=== PATIENT | female | born 1995 | race Native Hawaiian/Other Pacific Islander ===

== ENCOUNTER 2016-05-25 23:48 | Emergency (ER) | payer MEDICAID, OTHER ==
[2016-05-25] MEDS ORDERED: XOPENEX IH ONE (23:59)
[2016-05-25] MEDS ORDERED: ATROVENT IH ONE (23:59)
[2016-05-26] MEDS ORDERED: DUONEB 0.5 MG-3 MG/3 ML SOLN IH ONE (00:40)
--- NOTE | 2016-05-26 04:00 | Emergency Department Report ---
HPI - General Chief Complaint: Adult Asthma Time Seen by Provider: 05/26/16 00:38 - HPI HPI: The patient is a 20-year-old female with a history of asthma, who presents for evaluation of dyspnea. The patient reports progressive dyspnea for the past one week, severe for the past one day, constant for the past one day, exacerbated with physical activity, and improved at rest. The patient denies fever, cough, chest pain, syncope, hemoptysis, unilateral leg swelling, oral contraceptive use, recent immobilization, history of DVT or PE, hx cancer. She states that his symptoms are consistent with her previous asthma exacerbations. ED Past Medical Hx - Past Medical History Previous Medical History?: Yes Hx Asthma: Yes - Surgical History Past Surgical History?: No - Social History Smoking Status: Never Smoker Substance Use Type: None - Medications Home Medications: Home Medications Medication Instructions Recorded Confirmed Last Taken Type HYDROcodone/APAP 5-325 [Gwynn 1 each PO Q8HR PRN #6 tablet 06/21/13 Unknown Rx 5-325 mg TAB] ALBUTEROL Inhaler [ProAir HFA 2 puff IH QID PRN #1 inhalation 05/26/16 Unknown Rx Inhaler] Prednisone [predniSONE 10 mg 10 mg PO .TAPER #1 tab.ds.pk 05/26/16 Unknown Rx (6-Day Pack, 21 Tabs)] ED Review of Systems ROS: Stated complaint: LOUISA Other details as noted in HPI Constitutional: denies: fever ENT: denies: throat or neck pain Respiratory: reports shortness of breath and wheezing Cardiovascular: denies: chest pain Endocrine: denies unexplained weight loss or gain Gastrointestinal: denies: abdominal pain, nausea Genitourinary: denies: dysuria Musculoskeletal: denies: leg swelling Skin: denies: rash Neurological: denies: headache Hematological/Lymphatic: denies: easy bleeding or easy bruising Psych: denies sadness or hopelessness Physical Exam - Physical Exam Vital Signs: Vital Signs 05/25/16 05/26/16 05/26/16 23:55 00:10 00:19 Temperature 98.4 F Pulse Rate 121 H Pulse Rate [ 140 H 152 H Posterior Bilateral Throughout] Respiratory 28 H Rate Respiratory 28 H 26 H Rate [Posterior Bilateral Throughout] Blood Pressure 123/88 O2 Sat by Pulse 98 Oximetry 05/26/16 05/26/16 00:59 01:18 Temperature Pulse Rate Pulse Rate [ 148 H 148 H Posterior Bilateral Throughout] Respiratory 28 H Rate Respiratory 22 20 Rate [Posterior Bilateral Throughout] Blood Pressure O2 Sat by Pulse 96 Oximetry Physical Exam: General: well-nourished, well-developed, no acute distress Head: Normocephalic, atraumatic Eyes: normal sclera ENT: Mucous membranes are pink and moist Neck: trachea midline, neck supple, No neck stiffness, no cervical adenopathy Respiratory: Diminished breath sounds and wheezing present to lung buchanan bilaterally, no costal retractions, no respiratory distress Cardio: S1 and S2 present, no murmurs, rubs, gallops, capillary refill is brisk Abdomen: Normoactive bowel sounds, soft abdomen, no rigidity, no guarding or rebound tenderness Musc: No pitting edema Skin: No rash Neuro: no facial drooping, normal speech Psych: Normal affect ED Course Vital Signs 05/25/16 05/26/16 05/26/16 23:55 00:10 00:19 Temperature 98.4 F Pulse Rate 121 H Pulse Rate [ 140 H 152 H Posterior Bilateral Throughout] Respiratory 28 H Rate Respiratory 28 H 26 H Rate [Posterior Bilateral Throughout] Blood Pressure 123/88 O2 Sat by Pulse 98 Oximetry 05/26/16 05/26/16 00:59 01:18 Temperature Pulse Rate Pulse Rate [ 148 H 148 H Posterior Bilateral Throughout] Respiratory 28 H Rate Respiratory 22 20 Rate [Posterior Bilateral Throughout] Blood Pressure O2 Sat by Pulse 96 Oximetry ED Medical Decision Making - Medical Decision Making The patient was seen and examined by myself. The patient is placed on a registered nurse fetal and continuous pulse ox. On initial evaluation, the patient was found to be in no distress. Evaluation orders were placed. The patient is given mulitple duoneb breathing treatments and steroids for txt of asthma. Chest x-ray negative for focal consolidation, pleural effusions, pulmonary congestion, pneumothorax, or other acute cardio pulmonary disease process. Lab results are grossly not concerning. The patient was reevaluated and reported that their symptoms were markedly improved. On reexamination the patient is found to have normal respiratory rate and O2 sat on pulse oximetry, with no costal retractions or diminishment of breath sounds on auscultation. The patient is stable for discharge with outpatient follow-up. The patient is given follow-up and return instructions. The patient expressed understanding and agreed with the plan. The patient is discharged in stable condition. Critical care attestation.: If time is entered above; I have spent that time in minutes in the direct care of this critically ill patient, excluding procedure time. ED Disposition Clinical Impression: Acute asthma exacerbation Qualifiers: Asthma severity: mild intermittent Qualified Code(s): J45.21 - Mild intermittent asthma with (acute) exacerbation Disposition: DISCHARGED TO HOME OR SELFCARE Is pt being admited?: No Does the pt Need Aspirin: No Condition: Stable Instructions: Asthma (ED) Prescriptions: ALBUTEROL Inhaler [ProAir HFA Inhaler] 2 puff IH QID PRN #1 inhalation PRN Reason: Shortness Of Breath Prednisone [predniSONE 10 mg (6-Day Pack, 21 Tabs)] 10 mg PO .TAPER #1 tab.dsPetepk Referrals: PRIMARY CARE, [Primary Care Provider] - 3-5 Days Time of Disposition: 02:56
[2016-05-26 06:10] VITALS: BP 112/62
--- NOTE | 2016-05-26 09:42 | XRay Report ---
Chest 2 views: History: Asthma. Difficulty breathing. Findings: Normal cardiomediastinal silhouette. Trachea is midline. No consolidation, pneumothorax or pleural effusion. Impression: No acute cardiopulmonary findings.
== END 2016-05-26 04:15 | disposition home or self-care (01) ==
LOC: ED 23:48
DX: J45.21 Mild intermittent asthma with (acute) exacerbation (principal)
CPT/HCPCS: 71020; 81025; 94640; 96372; 99284; J2930